=== PATIENT | male | born 1990 | race Caucasian/White ===

== ENCOUNTER 2016-09-21 23:37 | Emergency (ER) | payer SELFPAY ==
--- NOTE | ~2016-09-21 | CR63 ---
[facility]. [facility] A Service of [facility] & [facility] RADIOLOGY TEXT RESULTS PATIENT: MATT WHITFIELD LOCATION: SED : [birth year] UNIT #: [id number] AGE: [address]: Thang Huggins MD SEX: M ORDER DR: [id number] [place] [id number] E MR#: [id number] Acc #: [id number] NAME: MATT WHITFIELD : 1990 SEX: M STUDY DATE/TIME: 09/22/2016 0:28 UNIT: SED ROOM: STUDY DESCRIPTION: CR Chest 2 View Attending Physician: Thang Huggins M.D. Ordering Physician: Thang Huggins M.D. Primary Care Physician: Nigel Brunson M.D. MEDICAL IMAGING REPORT This report is preliminary unless electronic signature is present. EXAM Chest, 2 views, 09/22/2016. INDICATIONS 26-year-old male with chest pain. Symptoms began an hour prior to arrival. TECHNIQUE 2-view chest compared with 09/03/2008. FINDINGS Cardiac silhouette unremarkable. Vascularity is normal. Lungs are clear. No effusion or pneumothorax. IMPRESSION 1. Negative chest. No change. Dictated by... Angel Luis Webster M.D. THIS IS AN ELECTRONICALLY VERIFIED REPORT Angel Luis Webster M.D. at 09/22/2016 9:57 PM ANIL/amy TD: 09/22/2016 09:47 JOB #: [id number] MEDICAL IMAGING REPORT Page 1 of 1
--- NOTE | ~2016-09-21 | EKG ---
PATIENT: MATT WHITFIELD UNIT #: [id number] Ventricular Rate: 112 BPM Atrial Rate: 112 BPM P-R Interval: 126 ms QRS Duration: 84 ms Q-T Interval: 326 ms QTC Calculation(Bezet): 444 ms P [place]: 83 degrees Calculated R [place]: 86 degrees Calculated T [place]: 68 degrees Diagnosis Line: Sinus tachycardia with Premature ventricular Diagnosis Line: complexes or Fusion complexes Diagnosis Line: Otherwise normal ECG Diagnosis Line: No previous ECGs available Diagnosis Line: Confirmed by EMA KAISER MD ([id number]) on 09/23/2016 Diagnosis Line: 9:13:16 PM INTERPRETING MD: AWILDA OLIVO
[2016-09-21 23:49] LABS: BASOPHIL# 0.1 X10e3 (0-0.3); BASOPHIL% 1.1 % (0-2.5); DIFF IND NO; EOSINOPHIL# 0.3 X10e3 (0-0.7); EOSINOPHIL% 3.2 % (0.0-7.0); HEMATOCRIT 42.4 % (38.0-50.0); HEMOGLOBIN 14.4 gm/dL (13.0-16.0); LYMPHOCYTE# 2.5 X10e3 (1.0-3.5); LYMPHOCYTE% 27.7 % (17.0-45.0); MEAN CELL VOLUME 88.9 FL (83-96); MEAN CORPUSCULAR HEMOGLOBIN 30.3 PG (28-34); MEAN PLATELET VOLUME 7.3 FL (6.5-11.5); MONOCYTE# 0.9 X10e3 (0-1.0); MONOCYTE% 9.5 % (3.0-12.0); NEUTROPHIL# 5.2 X10e3 (1.5-7.1); NEUTROPHIL% 58.5 % (40-75); PLATELET COUNT 343 X10e3 (140-420); RED BLOOD COUNT 4.77 X10e (3.90-5.60); RED CELL DISTRIBUTION WIDTH 13.4 % (11.0-15.5)
[2016-09-22 00:04] LABS: ALBUMIN SERUM 3.9 g/dL (3.5-5.0); ALKALINE PHOSPHATASE 75 U/L (32-92); ALT (SGPT) 155 U/L (10-40); AST (SGOT) 119 U/L (10-42); BILIRUBIN,TOTAL 0.4 mg/dL (0.2-2.0); BLOOD UREA NITROGEN 13 mg/dL (9-23); BUN/CREATININE RATIO 21.66; CALCIUM SERUM 8.6 mg/dL (8.4-10.2); CARBON DIOXIDE 26 mmol/L (22-31); CHLORIDE 108 mmol/L (100-111); CREATININE SERUM 0.6 mg/dL (0.6-1.4); GLOM FILT RATE Estimated 140.8 mL/min (>60); GLUCOSE FASTING 132 mg/dL (70-110); POTASSIUM 3.6 mmol/L (3.5-5.1); PROTEIN TOTAL SERUM 7.4 g/dL (6.0-8.3); SODIUM 140 mmol/L (135-145)
[2016-09-22 00:08] LABS: PROTHROMBIN TIME (PATIENT) 11.6 SECONDS (9.5-12.4)
[2016-09-22 00:14] LABS: BILIRUBIN, DIRECT <0.1 mg/dL (0.0-0.2); BILIRUBIN,INDIRECT 0.3 mg/dL (0.0-0.9)
[2016-09-22 00:15] LABS: PARTIAL THROMBOPLASTIN TIME 30.9 SECONDS (25.6-38.1)
[2016-09-22 00:15] LABS: POC - CKMB 2.5 ng/mL (0.0-7.9); POC - TROPONIN <0.05 ng/mL (<=0.05)
[2016-09-22 00:22] LABS: DDIMER <200 NG/ML (0-200)
== END 2016-09-22 01:15 | disposition left against medical advice (07) ==
LOC: SED 23:37
PROVIDERS: Emergency Medicine
DX: R07.9 Chest pain, unspecified (principal); F15.10 Other stimulant abuse, uncomplicated; R06.02 Shortness of breath; R05 Cough; Z86.19 Personal history of other infectious and parasitic diseases
CPT/HCPCS: 36415; 71020; 80048; 80076; 82553; 83874; 84484; 85025; 85379; 85610; 85730; 93005; 96360; 99284; J1885